=== PATIENT | female | born 1935 | race Caucasian/White ===

== ENCOUNTER → 2017-03-24 | Outpatient (CLI) | payer MEDICARE, BC ==
[~2017-03-24] MED LIST: BAYER ASPIRIN325 M1 PO; BENAZEPRIL HCL10 M1 PO; COUMADIN5 MG; INDAPAMIDE1.25 MG PO; LIPITOR PO; LORTAB 5-325 M1 EACH PO; LOTREL 10/20 CA1 CAP PO; NORVASC10 MG PO; PREDNISONE5 MG PO; ZANTAC150 M1 PO
--- NOTE | ~2017-03-24 | BD1 ---
[facility] A Service of [facility] RADIOLOGY TEXT RESULTS PATIENT: ASAD CHOU LOCATION: [facility] : 35 UNIT #: [id number] AGE: [address]: aJse Polk MD SEX: F ORDER DR: [id number] [facility] [address] [place], [place] [address] [id number] O MR#: [id number] Acc #: [id number] NAME: ASAD CHOU : 1935 SEX: F STUDY DATE/TIME: 03/24/2017 14:45 UNIT: [facility] ROOM: STUDY DESCRIPTION: BD Dexa Bone Dens 1+ Site Attending Physician: Jase Polk M.D. Ordering Physician: Jase Polk M.D. Primary Care Physician: Jase Polk M.D. MEDICAL IMAGING REPORT This report is preliminary unless electronic signature is present EXAM DXA scan, 03/24/2017. HISTORY Status post menopause with history of hormone replacement therapy. Arthritis. Hypertension with blood pressure medication for several years. Smoking history. Osteopenia. FINDINGS Bone mineral density in the lumbar spine from L1-L4 was 0.926 g/cm2 which is 1.1 standard deviations below the mean when compared to the young adult reference population which is characteristic of osteopenia. This is 1.6 standard deviations above the mean when compared to the age-matched population. Compared with 11/09/2014, there has been an increase in bone mineral density in the lumbar spine of 0.8%. Bone mineral density in the left hip was 0.761 g/cm2 which is 1.5 standard deviations below the mean when compared to the young adult reference population which is characteristic of osteopenia. This is 0.7 standard deviations above the mean when compared to the age-matched population. Compared with 11/09/2014, there has been a decrease in bone mineral density in the left hip of 7.1%. IMPRESSION Bone mineral density in the lumbar spine and the left hip characteristic of osteopenia. Compared with 11/09/2014, there has been an increase in bone mineral density in the lumbar spine and a decrease in bone mineral density in the left hip. Dictated by... Toni Gupta M.D. [facility] A Service of [facility] RADIOLOGY TEXT RESULTS PATIENT: ASAD CHOU LOCATION: [facility] : 35 UNIT #: [id number] AGE: [address]: Jase Polk MD SEX: F ORDER DR: THIS IS AN ELECTRONICALLY VERIFIED REPORT Toni Gupta M.D. at 03/25/2017 8:30 AM SOLE/rosario TD: 03/24/2017 16:29 JOB #: [id number] MEDICAL IMAGING REPORT Page 1 of 1 COPY
== END | disposition home or self-care (01) ==
LOC: CWCC 14:21
DX: M85.88 Other specified disorders of bone density and structure, other site (principal)
CPT/HCPCS: 77080